=== PATIENT | female | born 1990 | race African-American/Black ===

== ENCOUNTER 2018-12-23 18:23 | Emergency (ER) | payer OTHER, MEDICAID ==
[~2018-12-23] VITALS: Ht 167.6 cm; Wt 60.0 kg
[2018-12-23 18:32] VITALS: BP 120/66
== END 2018-12-23 23:29 | disposition left against medical advice (07) ==
LOC: ER 18:23
DX: R53.1 Weakness (principal); Z53.21 Procedure and treatment not carried out due to patient leaving prior to being seen by health care provider